=== PATIENT | female | born 1980 | race Caucasian/White ===

== ENCOUNTER → 2016-06-10 | Outpatient (CLI) | payer BC ==
[~2016-06-10] VITALS: Ht 176.5 cm; Wt 97.3 kg
[~2016-06-10] MED LIST: ADIPEX-P37.5 MG PO; CONTRAVE1 TER PO; DYRENIUM 50MG C50 MG PO; FASTIN30 MG; FASTIN30 MG PO; FERROUS SULFATE65 MG PO; HCTZ 25MG TAB25 MG PO; MASON NATURAL1200 MG PO; MOTRIN 800800 MG/TAB PO; NATURE'S BLE1000 MCG PO; PERCOCET 5/321 UDTAB PO; PRENATAL VITAMI1 TA5 PO; PROBIOTICA100 Milli1 PO; VITAMIN B COMPL1 T16 PO; VITAMIN B12500 MCG PO; VITAMIN D32000 IU PO; WOMEN'S DAILY F1 TAB PO
== END ==
LOC: LIGHT 05-27 14:46
DX: E78.4 Other hyperlipidemia (principal); E16.1 Other hypoglycemia; E66.09 Other obesity due to excess calories; Z68.31 Body mass index [BMI] 31.0-31.9, adult

== ENCOUNTER → 2016-09-09 | Outpatient (CLI) | payer BC ==
[~2016-09-09] VITALS: Ht 176.5 cm; Wt 104.1 kg
[2016-09-09 15:25] VITALS: BP 118/66; PULSE 66
[2016-10-04 11:06] VITALS: BP 118/67; PULSE 68
== END ==
LOC: LIGHT 07-15 10:02
DX: E78.5 Hyperlipidemia, unspecified (principal); E16.1 Other hypoglycemia; E66.9 Obesity, unspecified; Z68.33 Body mass index [BMI] 33.0-33.9, adult; Z71.3 Dietary counseling and surveillance; R60.9 Edema, unspecified

== ENCOUNTER → 2016-11-04 | Outpatient (CLI) | payer BC ==
[~2016-11-04] VITALS: Ht 176.5 cm; Wt 106.8 kg
[2016-11-04 09:16] VITALS: BP 120/72; PULSE 53
== END ==
LOC: LIGHT 09:15
DX: E78.5 Hyperlipidemia, unspecified (principal); E16.1 Other hypoglycemia; E66.9 Obesity, unspecified; Z68.34 Body mass index [BMI] 34.0-34.9, adult; Z71.3 Dietary counseling and surveillance; R60.9 Edema, unspecified

== ENCOUNTER → 2016-12-16 | Outpatient (CLI) | payer BC ==
[~2016-12-16] VITALS: Ht 176.5 cm; Wt 103.6 kg
[2016-12-16 11:38] VITALS: BP 120/70; PULSE 68
== END ==
LOC: LIGHT 10-28 10:21
DX: E78.5 Hyperlipidemia, unspecified (principal); E16.1 Other hypoglycemia; E66.9 Obesity, unspecified; Z68.33 Body mass index [BMI] 33.0-33.9, adult; Z71.3 Dietary counseling and surveillance; R60.9 Edema, unspecified

== ENCOUNTER → 2018-06-20 | Outpatient (CLI) | payer BC | LOC: COL.RAD 10:22 | DX: E01.0 Iodine-deficiency related diffuse (endemic) goiter (principal) ==

== ENCOUNTER → 2019-10-18 | Outpatient (CLI) | payer BC | LOC: MC.RAD 17:20 | DX: Z12.31 Encounter for screening mammogram for malignant neoplasm of breast (principal) ==

== ENCOUNTER → 2021-03-05 | Outpatient (CLI) | payer BC | LOC: MC.RAD 15:27 | DX: Z12.31 Encounter for screening mammogram for malignant neoplasm of breast (principal) ==

== ENCOUNTER 2021-08-08 21:02 | Emergency (ER) | payer BC ==
[~2021-08-08] VITALS: Ht 175.3 cm; Wt 136.4 kg
[2021-08-08 21:17] VITALS: TEMP 98.5
[2021-08-08 22:32] VITALS: BP 123/83; PULSE 92
== END 2021-08-08 22:32 | disposition home or self-care (01) ==
LOC: COL.ER 21:02
DX: S43.102A Unspecified dislocation of left acromioclavicular joint, initial encounter (principal); Y92.410 Unspecified street and highway as the place of occurrence of the external cause; V58.4XXA Person boarding or alighting a pick-up truck or van injured in noncollision transport accident, initial encounter

== ENCOUNTER → 2022-03-08 | Outpatient (CLI) | payer BC | LOC: MC.RAD 08:40 | DX: Z12.31 Encounter for screening mammogram for malignant neoplasm of breast (principal) ==